=== PATIENT | male | born 1950 | race Caucasian/White ===

== ENCOUNTER 2017-12-20 12:40 | Observation (INO) | payer OTHER ==
[2017-12-20] MEDS: SOD CHLORIDE 0.9% 1,000 ML IV ×3 (07:00→23:51)
[~2017-12-20 12:40] MED LIST: ACETAMINOPHEN 1000 MG/100 ML IVPB; CEFAZOLIN 2 GM/50 ML (PMX) 50 ML IVPB
[2017-12-20 13:31] LABS: ADD MAN DIFF? NO
[2017-12-20 13:34] LABS: WHITE BLOOD COUNT 8.8 10^3/ul (4.8-10.8)
[2017-12-20 13:34] LABS: BASOPHILS % 0.5 % (0.0-2.0); EOSINOPHILS # 0.1 10^3/ul (0.0-0.5); EOSINOPHILS % 1.5 % (0.0-7.0); HEMATOCRIT 45.2 % (42.0-52.0); HEMOGLOBIN 15.4 g/dl (14.0-18.0); LYMPHOCYTES # 2.3 10^3/ul (0.8-2.9); LYMPHOCYTES % 26.4 % (15.0-51.0); MEAN CORPUSCULAR HEMOGLOBIN 27.1 pg (29.0-33.0); MEAN CORPUSCULAR HGB CONC 34.1 g/dl (32.0-37.0); MEAN CORPUSCULAR VOLUME 79.6 fl (82.0-101.0); MEAN PLATELET VOLUME 11.7 fl (7.4-10.4); MONOCYTE # 0.6 10^3/ul (0.3-0.9); MONOCYTES % 6.3 % (0.0-11.0); NEUTROPHIL # 5.8 10^3/ul (1.6-7.5); PLATELET COUNT 188 10^3/UL (140-415); RED BLOOD COUNT 5.68 10^6/ul (4.70-6.10); RED CELL DISTRIBUTION WIDTH 12.7 % (11.5-14.5)
[2017-12-20 13:58] LABS: ALANINE AMINOTRANSFERASE 42 IU/L (13-69); ALBUMIN 5.1 g/dl (3.3-4.9); ALBUMIN/GLOBULIN RATIO 1.27; ALKALINE PHOSPHATASE 74 IU/L (42-121); ANION GAP 18 (8-16); ASPARTATE AMINO TRANSFERASE 32 IU/L (15-46); BILIRUBIN,INDIRECT 0.6 mg/dl (0-1.1); BILIRUBIN,TOTAL 0.6 mg/dl (0.2-1.3); CARBON DIOXIDE 26 mmol/L (21-31); CHLORIDE 106 mmol/L (97-110); GLUCOSE 111 mg/dl (70-220); TOTAL PROTEIN 9.1 g/dl (6.1-8.1)
[2017-12-20 13:59] LABS: BLOOD UREA NITROGEN 15 mg/dl (7-20); CALCIUM 9.5 mg/dl (8.4-10.2); CREATININE 0.94 mg/dl (0.61-1.24); POTASSIUM 4.6 mmol/L (3.5-5.1); SODIUM 145 mmol/L (135-144)
[2017-12-20 14:08] LABS: INR 1.04; PROTIME 13.7 Sec (11.9-14.9); PT RATIO 1.1
[2017-12-20] MEDS ORDERED: POLYMYXIN/BACITRACIN 1L IRRIG (16:34)
[2017-12-20] MEDS ORDERED: ROPIVACAINE 0.5 % 30 ML VIAL (16:40)
[2017-12-20] MEDS ORDERED: PROPOFOL 20 ML (16:40)
[2017-12-20] MEDS ORDERED: MIDAZOLAM 1 MG/ML 2 ML INJ (16:40)
[2017-12-20] MEDS ORDERED: ROCURONIUM 50 MG INJ (16:40)
[2017-12-20] MEDS ORDERED: FENTAnyl 50 MCG/ML VIAL ×2 (16:40)
[2017-12-20] MEDS ORDERED: PHENYLephrine (100 MCG/ML) 5ML SYG (17:08)
[2017-12-20] MEDS ORDERED: METOCLOPRAMIDE 10 MG INJ (17:10)
[2017-12-20] MEDS ORDERED: CEFAZOLIN 1 GM INJ (17:10)
[2017-12-20] MEDS ORDERED: SUGAMMADEX SODIUM 200 MG/2 ML VIAL IV (17:10)
[2017-12-20] MEDS ORDERED: KETOROLAC 30 MG INJ (17:10)
[2017-12-20] MEDS ORDERED: ONDANSETRON 4 MG INJ (17:10)
[2017-12-20] MEDS ORDERED: DEXAMETHASONE 4 MG/ML 1 ML INJ (17:10)
[2017-12-20] MEDS: BUPIVACAINE 0.25% (MPF) 30 ML INJ (17:35)
[2017-12-20] MEDS ORDERED: EPHEDrine SULFATE 50 MG/5 ML SYG (17:45)
[2017-12-20] MEDS ORDERED: LABETALOL HCL 20MG INJ IV (18:00)
[2017-12-20] MEDS ORDERED: ONDANSETRON 4 MG INJ IV (18:00)
[2017-12-20] MEDS ORDERED: DIPHENHYDRAMINE 50 MG INJ IV (18:00)
[2017-12-20] MEDS ORDERED: HYDROmorphONE (0.2 MG/ML) 10ML SYG IV ×2 (18:00)
[2017-12-20] MEDS ORDERED: morphine 2 MG INJ IV (18:00)
[2017-12-20] MEDS ORDERED: OXYCODONE/ACETAMINOPHEN (5/325) TAB PO ×2 (18:00)
[2017-12-20] MEDS ORDERED: METOCLOPRAMIDE 10 MG INJ IV (18:00)
[2017-12-20] MEDS ORDERED: EPHEDrine SULFATE 50 MG/5 ML SYG IV (18:00)
[2017-12-20] MEDS ORDERED: MEPERIDINE 25 MG INJ IV (18:00)
[2017-12-20] MEDS ORDERED: FENTAnyl 50 MCG/ML VIAL IV ×3 (18:00)
[2017-12-20] MEDS: HYDROmorphONE (0.2 MG/ML) 10ML SYG IV (18:43)
[2017-12-20] MEDS: CEFAZOLIN 2 GM/50 ML (PMX) 50 ML IVPB (19:06)
[2017-12-20] MEDS: OXYCODONE/ACETAMINOPHEN (5/325) TAB PO (20:13)
[2017-12-20 20:52] LABS: ADD MAN DIFF? NO
[2017-12-20 20:53] LABS: BASOPHILS % 0.3 % (0.0-2.0); EOSINOPHILS % 0.3 % (0.0-7.0); HEMATOCRIT 42.7 % (42.0-52.0); HEMOGLOBIN 14.4 g/dl (14.0-18.0); LYMPHOCYTES % 9.9 % (15.0-51.0); MEAN CORPUSCULAR HEMOGLOBIN 27.2 pg (29.0-33.0); MEAN CORPUSCULAR HGB CONC 33.7 g/dl (32.0-37.0); MEAN CORPUSCULAR VOLUME 80.6 fl (82.0-101.0); MEAN PLATELET VOLUME 11.9 fl (7.4-10.4); MONOCYTE # 0.2 10^3/ul (0.3-0.9); MONOCYTES % 1.7 % (0.0-11.0); NEUTROPHILS % 87.4 % (39.0-77.0); PLATELET COUNT 160 10^3/UL (140-415); RED CELL DISTRIBUTION WIDTH 12.6 % (11.5-14.5)
[2017-12-20 20:53] LABS: WHITE BLOOD COUNT 10.3 10^3/ul (4.8-10.8)
[2017-12-20 21:15] LABS: ALANINE AMINOTRANSFERASE 42 IU/L (13-69); ALBUMIN 4.5 g/dl (3.3-4.9); ALBUMIN/GLOBULIN RATIO 1.32; ALKALINE PHOSPHATASE 76 IU/L (42-121); ANION GAP 17 (8-16); ASPARTATE AMINO TRANSFERASE 30 IU/L (15-46); BILIRUBIN,INDIRECT 0.4 mg/dl (0-1.1); BILIRUBIN,TOTAL 0.4 mg/dl (0.2-1.3); BLOOD UREA NITROGEN 15 mg/dl (7-20); CALCIUM 8.7 mg/dl (8.4-10.2); CARBON DIOXIDE 21 mmol/L (21-31); CHLORIDE 107 mmol/L (97-110); CREATININE 0.92 mg/dl (0.61-1.24); GLUCOSE 121 mg/dl (70-220); POTASSIUM 4.3 mmol/L (3.5-5.1); SODIUM 141 mmol/L (135-144); TOTAL PROTEIN 7.9 g/dl (6.1-8.1)
[2017-12-21] MEDS: CEFAZOLIN 2 GM/50 ML (PMX) 50 ML IVPB ×2 (02:09→10:34)
[2017-12-21] MEDS: OXYCODONE/ACETAMINOPHEN (5/325) TAB PO ×3 (02:13→16:53)
[2017-12-21] MEDS: SOD CHLORIDE 0.9% 1,000 ML IV ×3 (03:57→13:57)
[2017-12-21 05:47] LABS: ADD MAN DIFF? NO
[2017-12-21 05:49] LABS: BASOPHILS % 0.1 % (0.0-2.0); HEMATOCRIT 39.1 % (42.0-52.0); HEMOGLOBIN 13.2 g/dl (14.0-18.0); LYMPHOCYTES # 0.9 10^3/ul (0.8-2.9); LYMPHOCYTES % 12.1 % (15.0-51.0); MEAN CORPUSCULAR HEMOGLOBIN 27.1 pg (29.0-33.0); MEAN CORPUSCULAR HGB CONC 33.8 g/dl (32.0-37.0); MEAN CORPUSCULAR VOLUME 80.3 fl (82.0-101.0); MEAN PLATELET VOLUME 12.1 fl (7.4-10.4); MONOCYTE # 0.3 10^3/ul (0.3-0.9); MONOCYTES % 4.2 % (0.0-11.0); NEUTROPHIL # 6.2 10^3/ul (1.6-7.5); NEUTROPHILS % 83.1 % (39.0-77.0); PLATELET COUNT 161 10^3/UL (140-415); RED BLOOD COUNT 4.87 10^6/ul (4.70-6.10); RED CELL DISTRIBUTION WIDTH 12.6 % (11.5-14.5)
[2017-12-21 05:49] LABS: WHITE BLOOD COUNT 7.4 10^3/ul (4.8-10.8)
[2017-12-21 06:34] LABS: ALANINE AMINOTRANSFERASE 34 IU/L (13-69); ALBUMIN 4.2 g/dl (3.3-4.9); ALBUMIN/GLOBULIN RATIO 1.27; ALKALINE PHOSPHATASE 62 IU/L (42-121); ANION GAP 19 (8-16); ASPARTATE AMINO TRANSFERASE 27 IU/L (15-46); BILIRUBIN,INDIRECT 0.5 mg/dl (0-1.1); BILIRUBIN,TOTAL 0.5 mg/dl (0.2-1.3); BLOOD UREA NITROGEN 17 mg/dl (7-20); CALCIUM 8.3 mg/dl (8.4-10.2); CARBON DIOXIDE 21 mmol/L (21-31); CHLORIDE 106 mmol/L (97-110); CREATININE 0.83 mg/dl (0.61-1.24); GLUCOSE 148 mg/dl (70-220); POTASSIUM 4.4 mmol/L (3.5-5.1); SODIUM 142 mmol/L (135-144); TOTAL PROTEIN 7.5 g/dl (6.1-8.1)
[2017-12-21] MEDS: KETOROLAC 15 MG INJ IV (14:16)
[2017-12-21] MEDS ORDERED: morphine LIQ (10 MG/5 ML) CUP PO (17:30)
== END 2017-12-21 18:35 | disposition home or self-care (01) ==
LOC: SDS 12:40 → REC 18:00 → MS1 19:45
DX: K43.0 Incisional hernia with obstruction, without gangrene (principal); I10 Essential (primary) hypertension; E78.5 Hyperlipidemia, unspecified; Z85.038 Personal history of other malignant neoplasm of large intestine
CPT/HCPCS: 49655; 71045; 80053; 85025; 85610; 85730; 93005; 99217